=== PATIENT | female | born 1940 | race Caucasian/White ===

== ENCOUNTER → 2023-09-15 17:21 | Outpatient (REF) | payer OTHER, SELFPAY | LOC: HWRAD 17:21 | PROVIDERS: ATTENDING PHYSICIAN Nurse Practitioner Family | DX: R06.09 Other forms of dyspnea (principal); R05.9 Cough, unspecified; R06.01 Orthopnea | CPT/HCPCS: 71046 ==

== ENCOUNTER → 2023-11-10 12:57 | Outpatient (REF) | payer OTHER, SELFPAY | LOC: DHCBS HW 12:57 | PROVIDERS: ATTENDING PHYSICIAN Nuclear Medicine Nuclear Cardiology; FAMILY PHYSICIAN Internal Medicine | DX: I48.21 Permanent atrial fibrillation (principal) | CPT/HCPCS: 93306 ==

== ENCOUNTER → 2024-01-31 12:57 | Outpatient (REF) | payer OTHER, SELFPAY | LOC: HWRAD 12:57 | PROVIDERS: ATTENDING PHYSICIAN Internal Medicine | DX: E04.1 Nontoxic single thyroid nodule (principal) | CPT/HCPCS: 76536 ==

== ENCOUNTER → 2024-04-12 11:28 | Outpatient (REF) | payer OTHER, SELFPAY | LOC: HWRAD 11:28 | PROVIDERS: ATTENDING PHYSICIAN Internal Medicine | DX: R74.8 Abnormal levels of other serum enzymes (principal) | CPT/HCPCS: 76700 ==

== ENCOUNTER 2024-04-30 12:28 | Outpatient (RCR) | payer OTHER, SELFPAY | END 2024-04-30 23:59 | disposition home or self-care (01) | LOC: RPT 12:28 | PROVIDERS: ATTENDING PHYSICIAN Internal Medicine | DX: I89.0 Lymphedema, not elsewhere classified (principal); M79.89 Other specified soft tissue disorders; D75.89 Other specified diseases of blood and blood-forming organs; R74.8 Abnormal levels of other serum enzymes; E11.9 Type 2 diabetes mellitus without complications; Z73.6 Limitation of activities due to disability; M62.81 Muscle weakness (generalized) | CPT/HCPCS: 97110; 97140; 97162; 97530 ==

== ENCOUNTER 2024-06-11 12:07 | Outpatient (RCR) | payer OTHER, SELFPAY | END 2024-06-11 23:59 | disposition home or self-care (01) | LOC: RPT 12:07 | PROVIDERS: ATTENDING PHYSICIAN Internal Medicine | DX: M79.89 Other specified soft tissue disorders (principal); D75.89 Other specified diseases of blood and blood-forming organs; R74.8 Abnormal levels of other serum enzymes; E11.9 Type 2 diabetes mellitus without complications; Z73.6 Limitation of activities due to disability | CPT/HCPCS: 97110; 97140; 97530 ==

== ENCOUNTER → 2024-06-25 13:11 | Outpatient (REF) | payer OTHER, SELFPAY | LOC: HWRCS 13:11 | PROVIDERS: ATTENDING PHYSICIAN Nuclear Medicine Nuclear Cardiology; FAMILY PHYSICIAN Internal Medicine | DX: I10 Essential (primary) hypertension (principal); I48.21 Permanent atrial fibrillation; I89.0 Lymphedema, not elsewhere classified | CPT/HCPCS: 93306 ==

== ENCOUNTER 2024-07-09 13:55 | Outpatient (RCR) | payer OTHER, SELFPAY | END 2024-07-09 23:59 | disposition home or self-care (01) | LOC: RPT 13:55 | PROVIDERS: ATTENDING PHYSICIAN Internal Medicine | DX: M79.89 Other specified soft tissue disorders (principal); D75.89 Other specified diseases of blood and blood-forming organs; R74.8 Abnormal levels of other serum enzymes; E11.9 Type 2 diabetes mellitus without complications; Z73.6 Limitation of activities due to disability | CPT/HCPCS: 97110; 97140 ==

== ENCOUNTER 2024-07-19 13:08 | Outpatient (RCR) | payer OTHER, SELFPAY | END 2024-07-19 23:59 | disposition home or self-care (01) | LOC: RPT 13:08 | PROVIDERS: ATTENDING PHYSICIAN Internal Medicine | DX: M79.89 Other specified soft tissue disorders (principal); D75.89 Other specified diseases of blood and blood-forming organs; R74.8 Abnormal levels of other serum enzymes; E11.9 Type 2 diabetes mellitus without complications; Z73.6 Limitation of activities due to disability | CPT/HCPCS: 97140 ==

== ENCOUNTER → 2024-08-21 13:33 | Outpatient (REF) | payer OTHER, SELFPAY | LOC: HWRAD 13:33 | PROVIDERS: ATTENDING PHYSICIAN Internal Medicine | DX: J18.9 Pneumonia, unspecified organism (principal) | CPT/HCPCS: 71046 ==

== ENCOUNTER 2024-09-11 12:04 | Outpatient (RCR) | payer OTHER, SELFPAY | END 2024-09-11 23:59 | disposition home or self-care (01) | LOC: RPT 12:04 | PROVIDERS: ATTENDING PHYSICIAN Internal Medicine | DX: M79.89 Other specified soft tissue disorders (principal); D75.89 Other specified diseases of blood and blood-forming organs; R74.8 Abnormal levels of other serum enzymes; E11.9 Type 2 diabetes mellitus without complications; Z73.6 Limitation of activities due to disability | CPT/HCPCS: 97140 ==

== ENCOUNTER → 2024-09-14 12:51 | Outpatient (REF) | payer OTHER, SELFPAY | LOC: HWRAD 12:51 | PROVIDERS: ATTENDING PHYSICIAN Internal Medicine | DX: J18.9 Pneumonia, unspecified organism (principal) | CPT/HCPCS: 71046 ==

== ENCOUNTER 2024-10-01 14:09 | Outpatient (RCR) | payer OTHER, SELFPAY | END 2024-10-01 23:59 | disposition home or self-care (01) | LOC: RPT 14:09 | PROVIDERS: ATTENDING PHYSICIAN Internal Medicine | DX: M79.89 Other specified soft tissue disorders (principal); D75.89 Other specified diseases of blood and blood-forming organs; R74.8 Abnormal levels of other serum enzymes; E11.9 Type 2 diabetes mellitus without complications; Z73.6 Limitation of activities due to disability | CPT/HCPCS: 97140 ==

== ENCOUNTER → 2024-10-27 11:28 | Outpatient (REF) | payer OTHER, SELFPAY | LOC: RAD 11:28 | PROVIDERS: ATTENDING PHYSICIAN Specialist; FAMILY PHYSICIAN Internal Medicine | DX: M19.012 Primary osteoarthritis, left shoulder (principal); M25.512 Pain in left shoulder | CPT/HCPCS: 73200 ==

== ENCOUNTER → 2025-01-15 13:14 | Outpatient (REF) | payer OTHER, SELFPAY | LOC: PAVMRI 13:14 | PROVIDERS: ATTENDING PHYSICIAN Physician Assistant; FAMILY PHYSICIAN Internal Medicine | DX: M25.551 Pain in right hip (principal); M54.16 Radiculopathy, lumbar region | CPT/HCPCS: 72148 ==

== ENCOUNTER → 2025-02-11 13:38 | Outpatient (REF) | payer OTHER, SELFPAY | LOC: HWRAD 13:38 | PROVIDERS: ATTENDING PHYSICIAN Specialist; FAMILY PHYSICIAN Internal Medicine | DX: M19.011 Primary osteoarthritis, right shoulder (principal) | CPT/HCPCS: 73200 ==

== ENCOUNTER → 2025-03-25 13:57 | Outpatient (REF) | payer OTHER, SELFPAY | LOC: HWRCS 13:57 | PROVIDERS: ATTENDING PHYSICIAN Physician Assistant; FAMILY PHYSICIAN Internal Medicine | DX: I10 Essential (primary) hypertension (principal); I48.21 Permanent atrial fibrillation; R06.09 Other forms of dyspnea; R53.83 Other fatigue | CPT/HCPCS: 93306 ==